=== PATIENT | female | born 1975 ===

== ENCOUNTER 2025-02-12 07:23 | Outpatient (CLI) | payer OTHER ==
[2025-02-14 05:07] LABS: ESTRADIOL SERUM 21.6 pg/mL (.); FOLLICLE STIMULATING HORMONE 8.9 mIU/mL (.); LEUTEINIZING HORMONE 4.7 mIU/mL (.); PROGESTERONA 0.3 ng/mL (.)
== END 2025-02-12 07:24 | disposition home or self-care (01) ==
LOC: LAB 07:23
PROVIDERS: ATTEND Obstetrics & Gynecology
DX: R87.1 Abnormal level of hormones in specimens from female genital organs (principal); R53.82 Chronic fatigue, unspecified; R68.82 Decreased libido; F32.A Depression, unspecified; R53.83 Other fatigue; G47.09 Other insomnia; F40.8 Other phobic anxiety disorders; E03.8 Other specified hypothyroidism

== ENCOUNTER 2025-02-12 07:45 | Outpatient (CLI) | payer OTHER | END 2025-02-12 07:49 | disposition home or self-care (01) | LOC: MAMO-SONO 07:45 | PROVIDERS: ATTEND Obstetrics & Gynecology | DX: N64.4 Mastodynia (principal); N64.9 Disorder of breast, unspecified; N95.1 Menopausal and female climacteric states ==

== ENCOUNTER 2025-05-20 12:56 | Outpatient (CLI) | payer OTHER | END 2025-05-20 13:14 | disposition home or self-care (01) | LOC: RAD 12:56 | PROVIDERS: ATTEND Neuromusculoskeletal Medicine, Sports Medicine | DX: M25.561 Pain in right knee (principal); M79.672 Pain in left foot | CPT/HCPCS: 73721 ==

== ENCOUNTER 2025-07-17 06:19 | Outpatient (CLI) | payer OTHER ==
[2025-07-17 07:42] LABS: URINE APPEARANCE Clear; URINE BILIRRUBIN Negative (NEGATIVE); URINE BLOOD Negative; URINE COLOR Yellow; URINE GLUCOSE Negative (NEGATIVE); URINE KETONE Negative (NEGATIVE); URINE LEUKOCYTE Negative; URINE NITRATE Negative; URINE PROTEIN Negative (NEGATIVE); URINE UROBILINOGEN 0.2 E.U./dl
[2025-07-17 07:45] LABS: URINE BACTERIA 3427.0 uL (0.0-1933); URINE EPITHELIAL CELLS 53.0 uL (0.0-38.8); URINE RBC 8.2 uL (0.0-20.8); URINE WBC 18.9 uL (0.0-23.2)
[2025-07-17 07:46] LABS: BASO % 0.6 % (0.1-1.2); EOS # 0.10 (0.04-0.54); EOS % 2.1 % (0.7-7.0); LYMPH # 1.77 (1.18-3.74); LYMPH % 36.5 % (19.3-53.1); MEAN PLATELET VOLUME 10.00 fl (9.4-12.4); MONO # 0.32 (0.24-0.82); MONO % 6.6 % (4.7-12.5); NEUT # 2.63 (1.56-6.13); NEUT % 54.2 % (34.0-71.1); RED CELL DISTRIBUTION WIDTH 12.2 % (11.6-14.4)
[2025-07-17 07:50] LABS: ERYTHROCYTE SEDIMENTATION RATE 32 mm/hr (0-20)
[2025-07-17 08:06] LABS: URINE CAST 0.14 uL (0.0-1.40)
[2025-07-17 08:53] LABS: ALT/SGPT 19 U/L (12-78); AST/SGOT 16 U/L (15-37); BILIRUBIN TOTAL 0.34 mg/dL (0.3-1.2); BUN CREA RATIO 22 (7.0-25.0); CHOL HDL RATIO 2.9 (0-5.0); CREATININE SERUM 0.74 mg/dL (0.55-1.02); GFR 83.76; GLOBULINA 3.5 G/DL (2.4-3.5); GLUCOSE FASTING 93 mg/dL (65-100); HDL 54 mg/dl (40-60); LDL 94 mg/dl (0-130); OSMOLALITY SERUM 282 MOSM/KG (275-295); T4 FREE 0.89 NG/ML (0.76-1.46); TSH 0.854 uIU/mL (0.358-3.74); VLDL 9 (0-39)
[2025-07-17 10:04] LABS: T3 TOTAL 0.969 ng/ml (0.846-2.02); VITAMIN D3 25 HYDROXY 45.46 ng/ml (30-120)
[2025-07-18 09:07] LABS: PROGESTERONA 0.1 ng/mL (.)
[2025-07-19 10:06] LABS: chla t Negative (Negative); neiss Negative (Negative)
== END 2025-07-17 06:26 | disposition home or self-care (01) ==
LOC: LAB 06:19
DX: E03.9 Hypothyroidism, unspecified (principal); E78.00 Pure hypercholesterolemia, unspecified; E55.9 Vitamin D deficiency, unspecified; R73.09 Other abnormal glucose; N39.0 Urinary tract infection, site not specified; R79.9 Abnormal finding of blood chemistry, unspecified; R79.89 Other specified abnormal findings of blood chemistry; R80.9 Proteinuria, unspecified; R68.2 Dry mouth, unspecified